=== PATIENT | female | born 1990 | race Caucasian/White ===

== ENCOUNTER 2022-06-20 19:56 | Emergency (ER) | payer OTHER ==
[2022-06-20 23:37] LABS: Absolute Lymphocytes (CBC) 1.5 K/uL (0.7-4.9); MPV 7.7 fL (7.6-11.3)
[2022-06-20] MEDS ORDERED: ONDANSETRON 4 MG/2 ML VIAL ONE (23:40)
[2022-06-20] MEDS ORDERED: MORPHINE 2 MG/ML SYR ONE (23:40)
[2022-06-20] MEDS ORDERED: NA CHLORIDE 0.9% 1,000 ML ONE (23:40)
[2022-06-20 23:46] LABS: Hematocrit 43.6 % (36.0-45.0); Lymphocytes % 19.7 % (15.3-44.8); MCV 90.8 fL (80-100); RBC Red Blood Cell Count 4.81 M/uL (3.86-4.86)
[2022-06-20 23:49] LABS: Albumin 4.5 g/dL (3.4-5.0); Bilirubin Total 0.7 mg/dL (0.2-1.0); Magnesium 2.4 mg/dL (1.6-2.4); Potassium 4.2 mmol/L (3.5-5.1)
[2022-06-21 00:51] LABS: Urine Blood Negative (Negative); Urine Glucose Negative (Negative); Urine Protein Negative (Negative); Urine Specific Gravity >=1.030 (1.005-1.030)
[2022-06-21] MEDS ORDERED: PROMETHAZINE INJ 25 MG/ML AMP ONE (00:58)
[2022-06-21] MEDS ORDERED: HYDROCODONE/APAP 5/325 MG TAB ONE (00:59)
--- NOTE | 2022-06-21 01:18 | ER ---
Nurse's Notes [facility] Name: Lila Farmer Age: 32 yrs Sex: Female : 1990 Arrival Date: 06/20/2022 Time: 20:26 Bed 16 Private MD: Diagnosis: Disorder of teeth and supporting structures, unspecified;Nausea with vomiting, unspecified Presentation: 06/20 21:19 Chief complaint: Patient states: "I had my tooth cut out yesterday.". Coronavirus vc1 screen: Vaccine status: Patient reports receiving the 2nd dose of the covid vaccine. Embarkly. Ebola Screen: No symptoms or risks identified at this time. Risk Assessment: Do you want to hurt yourself or someone else? Patient reports no desire to harm self or others. Onset of symptoms was June 19, 2022. 21:19 Method Of Arrival: Ambulatory vc1 21:19 Acuity: HEAVEN 3 vc1 21:29 Initial Sepsis Screen: Does the patient meet any 2 criteria? No. Patient's initial vc1 sepsis screen is negative. Does the patient have a suspected source of infection? No. Patient's initial sepsis screen is negative. Triage Assessment: 21:29 General: Appears in no apparent distress. uncomfortable, ill, Behavior is calm, vc1 cooperative, appropriate for age. Pain: Complains of pain in had tooth extracted. EENT: Reports pain in Had tooth extracted. 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 - Social history:: Smoking status: Patient denies any tobacco usage or history of. Screenin:30 [facility] ED Fall Risk Assessment (Adult) History of falling in the last 3 months, pf1 including since admission No falls in past 3 months (0 pts). 23:30 Humpty Dumpty Scale Fall Assessment Tool (age< 18yrs) Age 13 years and above (1 pt) pf1 Gender Female (1 pt) Diagnosis Other diagnosis (1 pt) Cognitive Impairments Oriented to own ability (1 pt) Environmental Factors Patient placed in bed (2 pts) Response to Surgery/Sedation/Anesthesia Within 48 hours (2 pts) Medication Usage Other medications/ None (1 pt) Fall Risk Score/ Level Low Fall Risk: </= 11 points Oriented to surroundings, Maintained a safe environment: Age specific bed with railing, Bed in low position\\T\\ wheels locked, Assess need for siderail use, Locks on, Rm \\T\\ paths clutter \\T\\ obstacle free, Proper lighting, Call light, personal item w/in reach, Alarms as needed, Educated pt \\T\\ family on fall prevention, incl. call for assistance when getting out of bed, Assessed \\T\\ reinforced patient's understanding of fall precautions. Abuse screen: Denies threats or abuse. Nutritional screening: No deficits noted. Tuberculosis screening: No symptoms or risk factors identified. Fall Risk No fall in past 12 months (0 pts). IV access (20 points). Assessment: 23:30 General: Appears uncomfortable, well groomed, well developed, Behavior is calm, pf1 cooperative, appropriate for age, quiet. 23:30 Pain: Complains of pain in Patient C/O left bottom mouth pain of 5 with swelling, pf1 nausea and vomiting,onset yesterday. Patient stated had a tooth surgically extracted yesterday. Pain currently is 5 out of 10 on a pain scale. Alleviated by medications. Neuro: No deficits noted. Level of Consciousness is awake, alert, obeys commands, Oriented to person, place, time, situation. Cardiovascular: No deficits noted. Respiratory: No deficits noted. Airway is patent Breath sounds are clear bilaterally. GI: Abdomen is flat, Bowel sounds present X 4 quads. Abd is soft and non tender X 4 quads. Reports nausea, vomiting. : No deficits noted. No signs and/or symptoms were reported regarding the genitourinary system. EENT:. EENT:. EENT: Reports pain in left lower mouth pain of 5 with swelling. Derm:. Vital Signs: 21:19 Weight 68.04 kg; Height 5 ft. 11 in. (180.34 cm); Pain 7/10; vc1 21:29 BP 117 / 93; Pulse 64; Resp 14; Temp 97.9(O); Pulse Ox 100% ; vc1 23:30 BP 122 / 84; Pulse 59; Resp 18; Temp 97.8; Pulse Ox 100% ; Pain 5/10; pf1 12 00:30 BP 126 / 86; Pulse 58; Resp 18; Temp 98; Pulse Ox 100% on R/A; Pain 3/10; pf1 01:30 BP 122 / 78; Pulse 60; Resp 18; Temp 98; Pulse Ox 99% ; Pain 3/10; pf1 06/20 21:19 Body Mass Index 20.92 (68.04 kg, 180.34 cm) vc1 ED Course: 06/20 20:26 Patient arrived in ED. bp1 20:29 Jorge Gee PA is PHCP. cp 20:29 Brayden Thornton MD is Attending Physician. cp 21:23 Triage completed. vc1 21:25 Arm band placed on right wrist. vc1 23:29 Donna winkler RN is Primary Nurse. pf1 23:30 Patient has correct armband on for positive identification. Bed in low position. Call pf1 light in reach. 23:30 No provider procedures requiring assistance completed. pf1 23:30 Inserted saline lock: 20 gauge in left antecubital area, using aseptic technique. pf1 06/21 00:52 Urine --Ancillary (enter results) Sent. pf1 01:45 IV discontinued, intact, bleeding controlled, No redness/swelling at site. Pressure pf1 dressing applied. Administered Medications: 06/20 23:50 Drug: NS 0.9% 1000 ml Route: IV; Rate: 1 bolus; Site: left antecubital; pf1 06/21 00:50 Follow up: Response: No adverse reaction; IV Status: Completed infusion; IV Intake: pf1 1000ml 06/20 23:50 Drug: Zofran (Ondansetron) 4 mg Route: IVP; Site: left antecubital; pf1 06/21 00:50 Follow up: Response: No adverse reaction; Nausea is decreased; Vomiting decreased pf1 06/20 23:50 Drug: morphine 2 mg Route: IVP; Infused Over: 4 mins; Site: left antecubital; pf1 06/21 00:50 Follow up: Response: No adverse reaction; Pain is decreased; RASS: Alert and Calm (0) pf1 01:00 Drug: Phenergan (promethazine) 12.5 mg Route: IVP; Site: left antecubital; pf1 01:44 Follow up: Response: No adverse reaction; Nausea is decreased pf1 01:12 Drug: HYDROcodone-acetaminophen 5 mg-325 mg 1 tabs Route: PO; pf1 01:42 Follow up: Response: No adverse reaction; Pain is decreased; RASS: Alert and Calm (0) pf1 Medication: 01:49 VIS not applicable for this client. pf1 Intake: 00:50 IV: 1000ml; Total: 1000ml. pf1 Outcome: 01:17 Discharge ordered by MD. cp 01:46 Discharged to home ambulatory, with family. pf1 01:46 Condition: improved 01:46 Discharge instructions given to patient, Instructed on discharge instructions, follow up and referral plans. medication usage, Demonstrated understanding of instructions, follow-up care, medications, Prescriptions given X 2. 01:50 Patient left the ED. pf1 Signatures: Jorge Gee PA PA cp [place]ia[place], Brittany bp1 Calcote, Vanessa, RN RN vc1 Donna winkler, VERA RN pf1 Corrections: (The following items were deleted from the chart) 06/20 21:25 21:23 Allergies: No Known Allergies; vc1 vc1 21:25 21:23 Home Meds: Sumatriptan Sub-Q; vc1 vc1 06/21 01:20 06/20 23:30 Inserted saline lock: 20 gauge in left antecubital area, using aseptic pf1 technique. pf1
--- NOTE | 2022-06-21 01:18 | EDPHYS ---
Physician Documentation [facility] Name: Lila Farmer Age: 32 yrs Sex: Female : 1990 Arrival Date: 06/20/2022 Time: 20:26 Bed 16 Private MD: ED Physician Brayden Thornton HPI: 06/20 21:30 This 32 yrs old Female presents to ER via Ambulatory with complaints of Toothache, cp Vomiting. 21:30 The patient presents with pain. The problem is located in the left lower jaw. Onset: cp The symptoms/episode began/occurred yesterday, and became worse today. Associated signs and symptoms: Pertinent positives: nausea, vomiting. Patient reports having left lower molar removed yesterday w/o complication. Today has been vomiting and unable to keep fluids and/or food down. 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 - Social history:: Smoking status: Patient denies any tobacco usage or history of. ROS: 21:35 Constitutional: Positive for poor PO intake, Negative for body aches, chills, fever. cp 21:35 Eyes: Negative for injury, pain, redness, and discharge. cp 21:35 ENT: Positive for dental pain, Negative for drainage from ear(s), ear pain, sore throat, difficulty swallowing, difficulty handling secretions. 21:35 Cardiovascular: Negative for chest pain. 21:35 Respiratory: Negative for cough, shortness of breath, wheezing. 21:35 Abdomen/GI: Positive for nausea and vomiting, Negative for diarrhea, constipation. 21:35 Neuro: Negative for altered mental status, headache. 21:35 All other systems are negative. Exam: 21:40 Constitutional: The patient appears in no acute distress, alert, awake, non-toxic, well cp developed, well nourished, uncomfortable. 21:40 Head/face: Noted is swelling, that is mild, of the left jaw. cp 21:40 Eyes: Periorbital structures: appear normal, Conjunctiva: normal, no exudate, no injection, Sclera: no appreciated abnormality, Lids and lashes: appear normal, bilaterally. 21:40 ENT: External ear(s): are unremarkable, Ear canal(s): are normal, clear, TM's: dullness, bilaterally, Nose: is normal, Mouth: Lips: moist, Oral mucosa: pink and intact, moist, Posterior pharynx: Airway: no evidence of obstruction, patent, swelling, is not appreciated, erythema, is not appreciated, exudate, is not appreciated, Dental exam: missing teeth, specifically the lower left second molar (#18), pain, that is severe, specifically in the lower left second molar (#18), Voice: is normal. 21:40 Neck: ROM/movement: is normal, is supple, without pain, no range of motions limitations, no meningismus, Lymph nodes: no appreciated lymphadenopathy. 21:40 Chest/axilla: Inspection: normal. 21:40 Cardiovascular: Rate: normal, Rhythm: regular. 21:40 Respiratory: the patient does not display signs of respiratory distress, Respirations: normal, no use of accessory muscles, no retractions, labored breathing, is not present, Breath sounds: are clear throughout, no decreased breath sounds, no stridor, no wheezing. 21:40 Abdomen/GI: Inspection: abdomen appears normal, Palpation: abdomen is soft and non-tender, in all quadrants. 21:40 Neuro: Orientation: to person, place \T\ time. Mentation: is normal, Cerebellar function: is grossly normal, Motor: moves all fours, strength is normal, Sensation: is normal. Vital Signs: 21:19 Weight 68.04 kg; Height 5 ft. 11 in. (180.34 cm); Pain 7/10; vc1 21:29 BP 117 / 93; Pulse 64; Resp 14; Temp 97.9(O); Pulse Ox 100% ; vc1 23:30 BP 122 / 84; Pulse 59; Resp 18; Temp 97.8; Pulse Ox 100% ; Pain 5/10; pf1 06/21 00:30 BP 126 / 86; Pulse 58; Resp 18; Temp 98; Pulse Ox 100% on R/A; Pain 3/10; pf1 01:30 BP 122 / 78; Pulse 60; Resp 18; Temp 98; Pulse Ox 99% ; Pain 3/10; pf1 06/20 21:19 Body Mass Index 20.92 (68.04 kg, 180.34 cm) vc1 MDM: 06/20 21:35 Patient medically screened. cp 22:00 Differential diagnosis: sepsis, dental abscess, intractable pain, dehydration, cp intractable vomiting. 06/21 01:16 Data reviewed: vital signs, nurses notes, lab test result(s), and as a result, I will cp discharge patient. Counseling: I had a detailed discussion with the patient and/or guardian regarding: the historical points, exam findings, and any diagnostic results supporting the discharge/admit diagnosis, lab results, to return to the emergency department if symptoms worsen or persist or if there are any questions or concerns that arise at home. 06/20 21:24 Order name: CBC with Diff; Complete Time: 00:14 cp 06/20 21:24 Order name: CMP; Complete Time: 00:14 cp 06/21 00:15 Interpretation: Normal except: NA 135; GFR 76; AST 12. cp 06/20 21:24 Order name: Magnesium; Complete Time: 00:14 cp 06/21 00:51 Order name: Urine Dipstick-Ancillary; Complete Time: 01:05 EDMS 06/21 01:05 Interpretation: Normal except: UKET 3+; UESTR 1+. cp 06/21 00:51 Order name: Urine --Ancillary (enter results) ds4 06/20 21:24 Order name: IV Saline Lock; Complete Time: 01:18 cp 06/20 21:24 Order name: Labs collected and sent; Complete Time: 01:18 cp 06/20 21:24 Order name: Urine Dipstick-Ancillary (obtain specimen); Complete Time: :18 cp 06/20 21:24 Order name: Urine Test (obtain specimen); Complete Time: 01:18 cp 06/21 00:26 Order name: PO challenge; Complete Time: 01:49 cp Administered Medications: 06/20 23:50 Drug: NS 0.9% 1000 ml Route: IV; Rate: 1 bolus; Site: left antecubital; pf1 06/21 00:50 Follow up: Response: No adverse reaction; IV Status: Completed infusion; IV Intake: pf1 1000ml 06/20 23:50 Drug: Zofran (Ondansetron) 4 mg Route: IVP; Site: left antecubital; pf1 06/21 00:50 Follow up: Response: No adverse reaction; Nausea is decreased; Vomiting decreased pf1 06/20 23:50 Drug: morphine 2 mg Route: IVP; Infused Over: 4 mins; Site: left antecubital; pf1 06/21 00:50 Follow up: Response: No adverse reaction; Pain is decreased; RASS: Alert and Calm (0) pf1 01:00 Drug: Phenergan (promethazine) 12.5 mg Route: IVP; Site: left antecubital; pf1 01:44 Follow up: Response: No adverse reaction; Nausea is decreased pf1 01:12 Drug: HYDROcodone-acetaminophen 5 mg-325 mg 1 tabs Route: PO; pf1 01:42 Follow up: Response: No adverse reaction; Pain is decreased; RASS: Alert and Calm (0) pf1 Disposition: 02:40 Co-signature as Attending Physician, Brayden Thornton MD. rn Disposition Summary: 06/21/22 01:17 Discharge Ordered Location: Home cp Problem: new cp Symptoms: have improved cp Condition: Stable cp Diagnosis - Disorder of teeth and supporting structures, unspecified cp - Nausea with vomiting, unspecified cp Followup: cp - With: Private Physician - When: 1 - 2 days - Reason: Worsening of condition Discharge Instructions: - Discharge Summary Sheet cp - Dental Pain cp - Nausea and Vomiting, Adult cp Forms: - Medication Reconciliation Form cp - Thank You Letter cp - Antibiotic Education cp - Prescription Opioid Use cp Prescriptions: - cefdinir 300 mg Oral capsule - take 1 capsule by ORAL route every 12 hours for 10 days; 20 capsule; Refills: cp 0, Product Selection Permitted - promethazine 25 mg Oral Tablet - take 1 tablet by ORAL route every 6 hours As needed; 20 tablet; Refills: 0, cp Product Selection Permitted Signatures: Dispatcher [employer] EDBrayden Verma MD MD rn Page, Corey, PA PA cp Velma Bhat RN RN vc1 Donna winkler RN RN pf1 Corrections: (The following items were deleted from the chart) 06/20 21:23 Allergies: No Known Allergies; vc1 vc1 21:23 Home Meds: Sumatriptan Sub-Q; vc1 vc1 06/21 00:15 00:15 Normal except: NA 135; GFR 76. cp cp
[2022-06-21 01:33] LABS: Urine Specific Gravity/Preg >1.030 (1.005-1.030)
[2022-06-21 02:12] VITALS: TEMP 98
[2022-06-21 02:14] VITALS: BP 122/78; O2SAT 99
== END 2022-06-21 01:50 | disposition home or self-care (01) ==
LOC: ER 19:56
DX: K08.89 Other specified disorders of teeth and supporting structures (principal); R11.2 Nausea with vomiting, unspecified; Z98.818 Other dental procedure status; Z88.0 Allergy status to penicillin; Z88.1 Allergy status to other antibiotic agents; Z88.3 Allergy status to other anti-infective agents; Z88.5 Allergy status to narcotic agent; Z88.6 Allergy status to analgesic agent; Z88.8 Allergy status to other drugs, medicaments and biological substances; Z91.040 Latex allergy status; Z91.048 Other nonmedicinal substance allergy status
CPT/HCPCS: 96361; 85025; 36415; 83735; 81025; 81003; 80053; 96375; 96374; 99284; J2550; J2270; J7030; J2405

== ENCOUNTER 2022-07-17 07:34 | Day surgery (SDC) | payer OTHER ==
[2022-07-17 08:06] LABS: Absolute Lymphocytes (CBC) 1.3 K/uL (0.7-4.9); Hematocrit 41.1 % (36.0-45.0); Lymphocytes % 26.7 % (15.3-44.8); MCV 90.2 fL (80-100); MPV 7.5 fL (7.6-11.3); RBC Red Blood Cell Count 4.56 M/uL (3.86-4.86)
[2022-07-17] MEDS ORDERED: Ringers Lactate 1,000 ML IV ONE (08:16)
[2022-07-17] MEDS ORDERED: MIDAZOLAM HCL 2 MG/2 ML INJ ONE (08:25)
[2022-07-17] MEDS ORDERED: FENTANYL CITR 100 MCG/2 ML ONE (08:25)
[2022-07-17] MEDS ORDERED: propofoL 200 MG/20 ML VIAL IV ONE (08:25)
[2022-07-17] MEDS ORDERED: KETOROLAC 30 MG/ML INJ ONE (08:26)
[2022-07-17] MEDS ORDERED: dexAMETHasone 10 MG/ML VIAL ONE (08:26)
[2022-07-17] MEDS ORDERED: LIDOCAINE 2% MPF 5 ML VIAL ONE (08:28)
[2022-07-17] MEDS ORDERED: ONDANSETRON 4 MG/2 ML VIAL ONE ×2 (08:28→10:45)
[2022-07-17] MEDS ORDERED: SCOPOLAMINE HYDROBROMIDE PATCH TD ONE (08:41)
[2022-07-17] MEDS ORDERED: CIPROFLOXACIN 400mg IV 400 MG/200 ML BAG IV ONE (08:41)
[2022-07-17] MEDS: BUPIVACAINE 0.5% PF 10 ML VIAL ONE ×3 (08:43→09:28)
[2022-07-17 09:07] LABS: Urine Specific Gravity/Preg 1.025 (1.005-1.030)
[2022-07-17] MEDS ORDERED: Mastisol Adhesive Liq ONE (10:06)
--- NOTE | 2022-07-17 10:07 | P.BOP ---
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
[2022-07-17] MEDS ORDERED: MEPERIDINE HCL 25 MG/ML SYR ONE (10:33)
[2022-07-17] MEDS ORDERED: MORPHINE 4 MG/ML SYR ONE (10:41)
[2022-07-17] MEDS ORDERED: HYDROCODONE/APAP 7.5/325 MG TAB ONE (11:28)
[2022-07-17 11:53] VITALS: BP 112/85; TEMP 97.4; O2SAT 100
--- NOTE | 2022-07-17 21:52 | DS ---
Date of Discharge: 07/17/2022 Diagnosis: Left hip tender enlarging subcutaneous mass. Procedure: Excision and biopsy of left hip tender enlarging subcutaneous mass. Disposition: Home. Activity: As tolerated, no heavy lifting. Follow Up: In my office in 1 week. Call for appointment on [phone]. Discharge Instructions: Keep area dry for 48 hours, then may remove outer dressing and shower. LEWIS t o bulb suction, record output q.24 hours. COLLEEN/AYANA Voice ID: [id number] Report ID: [id number]
--- NOTE | 2022-07-17 21:52 | OP ---
Date of Procedure: 07/17/2022 Surgeon: Joseph Gusman MD Coremaker Helper: Shandra Holder. Preoperative Diagnosis: Left hip tender enlarging recurrent subcutaneous mass. Postoperative Diagnosis: Left hip tender enlarging recurrent subcutaneous mass. Procedure: Excision and biopsy of left hip tender and large subcutaneous mass, 7 x 6 cm Specimen: Mass. Anesthesia: General plus local. Drains: LEWIS #10. Indications: This is a case of a 32-year-old patient who comes to us with enlarging mass over the le ft hip region increasing in size, she said last year several times in size. Interestingly she had th is similar near the area excised, she said several months ago and she even had a drain in that region . It was done at another institution and in the last few months, it has doubled in size few times. It is starting to give her pain and discomfort. It is not fluid, it is a mass itself so she wants th at excised. She understands the benefits, alternatives, and risks, which include, but are not limite d to infection, bleeding, damage to adjacent structures, anesthesia complication, seromas, hematomas, NE, and even . She also understands this may not relieve her symptoms and she might need more than one surgical intervention. She understood and signed a consent. Procedure In Detail: The area of concern was marked by me and the patient in the holding room. The patient was brought to the operating room and placed in supine position. Anesthesia was given withou t complication. The patient was placed in lateral decubitus position with proper protection. Left h ip was prepped and draped in a sterile fashion. We have already delineated the area of concern. We have to make another incision since the previous one may not cover the area of concern. So incision was carried down to subcutaneous tissue. We noticed this multilobulated mass in that region. At one point, one of the margins include scar tissue from the previous surgery. We were able to, slowly wi th the help of blunt dissection delineate the area of concern. It does not go to the fascia of the m uscle, although goes deep to that area. The mass was completely excised in 1 unit. Area was irrigat ed. There was a chance of a seroma in that region. Hematoma was controlled and we obtained excellen t hemostasis. Still I left a LEWIS drain in that region exiting through another site and secured in meredith ce with 2-0 nylon and then the subcutaneous tissue was closed after hemostasis and irrigation and loc al anesthetic. We proceeded to close the subcutaneous tissue with a combination of 3-0 chromic and 4 -0 PDS. The patient tolerated the procedure well. The patient was sent to recovery in stable condit ion. Sponge count and instrument counts were correct. COLLEEN/MODL Voice ID: [id number] Report ID: [id number]
== END 2022-07-17 11:45 | disposition home or self-care (01) ==
LOC: OR 07:34
PROVIDERS: ATTEND Surgery
PROC: 0JBM0ZZ Excision of Left Upper Leg Subcutaneous Tissue and Fascia, Open Approach (ICD-10-PCS; principal; 2022-07-17 09:30)
DX: R22.42 Localized swelling, mass and lump, left lower limb (principal); J45.909 Unspecified asthma, uncomplicated; F41.9 Anxiety disorder, unspecified
CPT/HCPCS: 85025; 80048; 36415; 81025; 88304; 11406; J2704; J2001; J2250; J3010; J1100; J2175; J7120; J2405 ×2; J0744

== ENCOUNTER 2022-08-27 15:21 | Emergency (ER) | payer OTHER ==
--- NOTE | 2022-08-27 15:51 | EDPHYS ---
Physician Documentation [facility] Name: Lila Farmer Age: 32 yrs Sex: Female : 1990 Arrival Date: 08/27/2022 Time: 15:23 Bed [id number] Private MD: ED Physician Destin Prabhakar HPI: 08/27 17:15 This 32 yrs old Female presents to ER via Ambulatory with complaints of Ankle Swelling, kb Foot Swelling. 17:17 The patient presents with cellulitis of the dorsum of right foot and anterior aspect of kb right ankle. Description: erythematous, swollen, warm. Onset: The symptoms/episode began/occurred yesterday. Possible cause(s): insect sting. Associated signs and symptoms: Pertinent positives: erythema, swelling, Pertinent negatives: discharge, drainage, foreign body sensation, fever, headache, nausea, shortness of breath, vomiting. Modifying factors: the symptoms are alleviated by nothing, the symptoms are aggravated by pressure, touching. Severity of symptoms: At their worst the symptoms were mild. The patient has not experienced similar symptoms in the past. The patient has not recently seen a physician. Historical: - Allergies: 15:49 Adhesives; aa5 15:49 Clindamycin; aa5 15:49 Ibuprofen; aa5 15:49 Latex, Natural Rubber; aa5 15:49 PENICILLINS; aa5 15:49 SUMATRIPTAN; aa5 15:49 Tramadol HCl; aa5 - PMHx: 15:49 Asthma; aa5 - PSHx: 15:49 face reconstruction; hysterectomy; Tonsillectomy; aa5 - Immunization history:: Adult Immunizations unknown. - Social history:: Smoking status: Patient denies any tobacco usage or history of. ROS: 17:15 Constitutional: Negative for fever, chills, and weight loss. kb 17:15 Skin: Positive for erythema, swelling, of the anterior aspect of right ankle and dorsum of right foot. 17:15 All other systems are negative. Exam: 17:15 Constitutional: This is a well developed, well nourished patient who is awake, alert, kb and in no acute distress. Head/Face: Normocephalic, atraumatic. ENT: Moist Mucous membranes Cardiovascular: Regular rate and rhythm with a normal S1 and S2. No gallops, murmurs, or rubs. No pulse deficits. Respiratory: Respirations even and unlabored. No increased work of breathing. Talking in full sentences Abdomen/GI: Soft, non-tender. No distention MS/ Extremity: Pulses equal, no cyanosis. Neurovascular intact. Full, normal range of motion. Neuro: Awake and alert, GCS 15, oriented to person, place, time, and situation. Moves all extremities. Normal gait. 17:15 Skin: cellulitis, that is mild, on the dorsum of right foot and anterior aspect of right ankle. Vital Signs: 15:49 BP 120 / 93; Pulse 85; Resp 18 S; Temp 98.0(TE); Pulse Ox 100% on R/A; Weight 70.67 kg aa5 (R); Height 5 ft. 11 in. (180.34 cm) (R); 15:49 Body Mass Index 21.73 (70.67 kg, 180.34 cm) aa5 MDM: 15:47 Patient medically screened. kb 17:18 Differential diagnosis: abscess, allergic reaction, cellulitis, insect bite. Data kb reviewed: vital signs, nurses notes. Counseling: I had a detailed discussion with the patient and/or guardian regarding: the historical points, exam findings, and any diagnostic results supporting the discharge/admit diagnosis, the need for outpatient follow up, a family practitioner, to return to the emergency department if symptoms worsen or persist or if there are any questions or concerns that arise at home. ED course: Patient is a 32-year-old female who presents for redness, swelling, pain and warmth to anterior aspect of right ankle and dorsal aspect of right foot that started yesterday after being bitten by some insect. On exam mild cellulitis is noted to anterior aspect of right ankle and dorsal aspect of right foot. Vital stable, no fever. Patient nontoxic in appearance. Will prescribe antibiotics. Return precautions given and verbal understanding received.. Administered Medications: No medications were administered Disposition: 17:38 Co-signature as Attending Physician, Destin Prabhakar MD I agree with the assessment and kdr plan of care. Disposition Summary: 08/27/22 15:51 Discharge Ordered Location: [facility] Condition: Stable kb Diagnosis - Cellulitis of right lower limb kb Followup: kb - With: Emergency Department - When: As needed - Reason: Worsening of condition Followup: kb - With: Private Physician - When: 2 - 3 days - Reason: Recheck today's complaints, Continuance of care, Re-evaluation by your physician Discharge Instructions: - Discharge Summary Sheet kb - Cellulitis, Adult, Wyna-ax-Rcnd kb Forms: - Medication Reconciliation Form kb - Thank You Letter kb - Antibiotic Education kb - Prescription Opioid Use kb Prescriptions: - Bactrim DS 800-160 mg Oral Tablet - take 1 tablet by ORAL route every 12 hours for 10 days; 20 tablet; Refills: 0, kb Product Selection Permitted Signatures: Liliana Chaves FNP-C FNP-Ckb Rittger, Kevin, MD MD kdr Calderon, Audri, RN RN aa5
--- NOTE | 2022-08-27 15:51 | ER ---
Nurse's Notes [facility] Name: Lila Farmer Age: 32 yrs Sex: Female : 1990 Arrival Date: 08/27/2022 Time: 15:23 Bed IW4 Private MD: Diagnosis: Cellulitis of right lower limb Presentation: 08/27 15:49 Chief complaint: Patient states: "I think I got bitten by fire ants on my right foot". aa5 Pt c/o pain to right foot, swelling to right foot. Coronavirus screen: At this time, the client does not indicate any symptoms associated with coronavirus-19. Ebola Screen: Patient denies travel to an Ebola-affected area in the 21 days before illness onset. Initial Sepsis Screen: Does the patient meet any 2 criteria? No. Patient's initial sepsis screen is negative. Does the patient have a suspected source of infection? No. Patient's initial sepsis screen is negative. Risk Assessment: Do you want to hurt yourself or someone else? Patient reports no desire to harm self or others. Onset of symptoms was August 2022. 15:49 Acuity: HEAVEN 5 aa5 15:49 Method Of Arrival: Ambulatory aa5 Historical: - Allergies: 15:49 Adhesives; aa5 15:49 Clindamycin; aa5 15:49 Ibuprofen; aa5 15:49 Latex, Natural Rubber; aa5 15:49 PENICILLINS; aa5 15:49 SUMATRIPTAN; aa5 15:49 Tramadol HCl; aa5 - PMHx: 15:49 Asthma; aa5 - PSHx: 15:49 face reconstruction; hysterectomy; Tonsillectomy; aa5 - Immunization history:: Adult Immunizations unknown. - Social history:: Smoking status: Patient denies any tobacco usage or history of. Assessment: 15:53 Reassessment: Patient is alert, oriented x 3, equal unlabored respirations, skin aa5 warm/dry/pink. Vital Signs: 15:49 BP 120 / 93; Pulse 85; Resp 18 S; Temp 98.0(TE); Pulse Ox 100% on R/A; Weight 70.67 kg aa5 (R); Height 5 ft. 11 in. (180.34 cm) (R); 15:49 Body Mass Index 21.73 (70.67 kg, 180.34 cm) aa5 ED Course: 15:23 Patient arrived in ED. as 15:32 Liliana Chaves FNP-C is [facility]. kb 15:32 Destin Prabhakar MD is Attending Physician. kb 15:48 Arm band placed on. aa5 15:51 Triage completed. aa5 15:53 No provider procedures requiring assistance completed. Patient did not have IV access aa5 during this emergency room visit. Administered Medications: No medications were administered Outcome: 15:51 Discharge ordered by . kb 15:53 Discharged to home ambulatory. aa5 15:53 Condition: stable 15:53 Discharge instructions given to patient, Instructed on discharge instructions, follow up and referral plans. medication usage, Demonstrated understanding of instructions, follow-up care, medications, Prescriptions given X 1. 15:54 Patient left the ED. aa5 Signatures: Liliana Chaves FNP-C FNP-Regla Osorio Audri, RN RN aa5 Corrections: (The following items were deleted from the chart) 15:51 15:49 Pulse 85bpm; Resp 18bpm; Spontaneous; Pulse Ox 100% RA; Temp 98.0F Temporal; aa5 70.67 kg Reported; Height 5 ft. 11 in. Reported; BMI: 21.7; aa5
== END 2022-08-27 15:54 | disposition home or self-care (01) ==
LOC: ER 15:21
DX: L03.115 Cellulitis of right lower limb (principal)
CPT/HCPCS: 99282

== ENCOUNTER 2022-11-20 19:26 | Emergency (ER) | payer OTHER ==
[2022-11-20 20:29] LABS: Absolute Lymphocytes (CBC) 2.4 K/uL (0.7-4.9); Hematocrit 39.1 % (36.0-45.0); Lymphocytes % 25.2 % (15.3-44.8); MCV 89.3 fL (80-100); MPV 7.6 fL (7.6-11.3); RBC Red Blood Cell Count 4.38 M/uL (3.86-4.86)
--- NOTE | 2022-11-20 20:34 | RAD REPORT ---
EXAM DESCRIPTION: RAD - Chest Single View - 11/20/2022 8:24 pm CLINICAL HISTORY: Chest pain;Congestion;Cough Chest pain. COMPARISON: No comparisons FINDINGS: Portable technique limits examination quality. The lungs are grossly clear. The heart is normal in size. No displaced fractures. IMPRESSION: No acute intrathoracic process suspected.
[2022-11-20 20:36] LABS: Protime INR 1.09
[2022-11-20 20:37] LABS: ALT/SGPT 20 U/L (13-56); AST/SGOT 12 U/L (15-37); Albumin 4.2 g/dL (3.4-5.0); Alkaline Phosphatase 64 U/L (45-117); BUN Blood Urea Nitrogen 16 mg/dL (7-18); Bicarbonate 28 mEq/L (21-32); Bilirubin Direct 0.1 mg/dL (0-0.2); Bilirubin Indirect, Calculated 0.1 mg/dL (0.2-0.8); Bilirubin Total 0.2 mg/dL (0.2-1.0); Glomerular Filtration Rate 70 ml/min (=/>90); Glucose Level 93 mg/dL (74-106); Magnesium 2.1 mg/dL (1.6-2.4); NT PRO-BNP 53 pg/mL (<125); Potassium 3.5 mEq/L (3.5-5.1); Protein, Total 8.1 g/dL (6.4-8.2); Sodium Level 134 mEq/L (136-145)
[2022-11-20 20:49] LABS: Troponin High Sensitivity < 3.0 pg/mL (<58.9)
[2022-11-20] MEDS ORDERED: NA CHLORIDE 0.9% 1,000 ML ONE (21:01)
[2022-11-20] MEDS ORDERED: ONDANSETRON 4 MG/2 ML VIAL ONE (21:01)
[2022-11-20] MEDS ORDERED: MORPHINE 4 MG/ML SYR ONE (21:01)
[2022-11-20] MEDS ORDERED: LORazepam 2 MG/ML VIAL ONE (21:01)
[2022-11-20] MEDS ORDERED: MAGNES/ALUMIN/SIMET 30ML UCUP ONE (21:02)
--- NOTE | 2022-11-20 21:19 | RAD REPORT ---
EXAM DESCRIPTION: CT - Chest For Pe Angio - 11/20/2022 9:09 pm CLINICAL HISTORY: Chest pain. CHEST PAIN COMPARISON: <Comparisons> TECHNIQUE: CT angiogram of the pulmonary arteries was performed with MIP. All CT scans are performed using dose optimization technique as appropriate and may include automated exposure control or mA/KV adjustment according to patient size. FINDINGS: No evidence of pulmonary thromboembolism. No acute aortic finding demonstrated. The lungs are clear. No significant pericardial or pleural fluid. No concerning bony finding. IMPRESSION: No evidence of pulmonary thromboembolism. No acute lung findings.
--- NOTE | 2022-11-20 23:25 | ER ---
Nurse's Notes [facility] Name: Lila Farmer Age: 32 yrs Sex: Female : 1990 Arrival Date: 11/20/2022 Time: 19:26 Bed 5 Private MD: Diagnosis: Acute systemic viral illness, acute viral bronchitis, COVID-19, pleuritic chest pain, noncardiac chest pain Presentation: 11/20 19:50 Chief complaint: Patient states: "I've had this cough for a week and it won't go away, as6 my doctor gave me antibiotics and I've been taking them for about 5 days and it still hasn't gone away". Coronavirus screen: At this time, the client does not indicate any symptoms associated with coronavirus-19. Ebola Screen: No symptoms or risks identified at this time. Initial Sepsis Screen: Does the patient meet any 2 criteria? No. Patient's initial sepsis screen is negative. Does the patient have a suspected source of infection? No. Patient's initial sepsis screen is negative. Risk Assessment: Do you want to hurt yourself or someone else? Patient reports no desire to harm self or others. Onset of symptoms was November 13, 2022. 19:50 Method Of Arrival: Ambulatory as6 19:50 Acuity: HEAVEN 3 as6 Triage Assessment: 19:56 General: Appears uncomfortable, ill, Behavior is cooperative, anxious, crying. Pain: as6 Complains of pain in chest. Cardiovascular: Reports chest pain. Respiratory: Reports cough that is. 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 - Social history:: Smoking status: Patient denies any tobacco usage or history of. - Family history:: not pertinent. Screenin:30 [facility] ED Fall Risk Assessment (Adult) History of falling in the last 3 months, ll3 including since admission No falls in past 3 months (0 pts) Confusion or Disorientation No (0 pts) Intoxicated or Sedated No (0 pts) Impaired Gait No (0 pts) Mobility Assist Device Used No (0 pt) Altered Elimination No (0 pt) Score/Fall Risk Level 0 - 2 = Low Risk Oriented to surroundings, Maintained a safe environment, Educated pt \\T\\ family on fall prevention, incl call for assistance when getting out of bed. Abuse screen: Denies threats or abuse. Denies injuries from another. Nutritional screening: No deficits noted. Tuberculosis screening: No symptoms or risk factors identified. Assessment: 21:00 General: Appears in no apparent distress. uncomfortable, Behavior is calm, cooperative, jb4 appropriate for age. Pain: Complains of pain in mid-sternal area Pain does not radiate. Pain currently is 8 out of 10 on a pain scale. Quality of pain is described as burning. Neuro: Level of Consciousness is awake, alert, obeys commands, Oriented to person, place, time, situation. Cardiovascular: Patient's skin is warm and dry. Respiratory: Airway is patent Respiratory effort is even, unlabored, Respiratory pattern is regular, symmetrical. GI: No signs and/or symptoms were reported involving the gastrointestinal system. : No signs and/or symptoms were reported regarding the genitourinary system. EENT: No signs and/or symptoms were reported regarding the EENT system. Derm: Skin is intact, Skin is pink, warm \\T\\ dry. Musculoskeletal: Circulation, motion, and sensation intact. Range of motion: intact in all extremities. 22:00 Reassessment: Patient appears in no apparent distress at this time. Patient and/or jb4 family updated on plan of care and expected duration. Pain level reassessed. Patient is alert, oriented x 3, equal unlabored respirations, skin warm/dry/pink. 23:00 Reassessment: Patient appears in no apparent distress at this time. Patient and/or jb4 family updated on plan of care and expected duration. Pain level reassessed. Patient is alert, oriented x 3, equal unlabored respirations, skin warm/dry/pink. Patient states feeling better. Vital Signs: 19:50 BP 135 / 96; Pulse 85; Resp 20; Temp 98.2; Pulse Ox 99% on R/A; Weight 68.04 kg (R); as6 Height 5 ft. 10 in. (R); Pain 7/10; 20:45 BP 138 / 89; Pulse 83; Resp 16; Pulse Ox 98% on R/A; jb4 22:15 BP 139 / 81; Pulse 74; Resp 16; Pulse Ox 98% on R/A; jb4 23:30 BP 127 / 80; Pulse 85; Resp 16; Pulse Ox 100% on R/A; ll3 19:50 Body Mass Index 21.52 (68.04 kg, 177.8 cm) as6 19:50 Pain Scale: Adult as6 ED Course: 19:29 Patient arrived in ED. ja2 19:55 Triage completed. as6 19:56 Arm band placed on. as6 19:58 Danny Gimenez MD is Attending Physician. sp4 20:05 Inserted saline lock: 20 gauge in left antecubital area, using aseptic technique. Blood as6 collected. 20:26 XRAY Chest (1 view) In Process Unspecified. EDMS 21:10 CT Chest For PE Angio In Process Unspecified. EDMS 21:41 Anibal Chinchilla, RN is Primary Nurse. jb4 21:57 EKG done, reviewed by Danny Gimenez MD. wm 23:30 Patient has correct armband on for positive identification. Bed in low position. Call ll3 light in reach. Side rails up X 1. Client placed on continuous cardiac and pulse oximetry monitoring. NIBP monitoring applied. 23:31 No provider procedures requiring assistance completed. Patient maintains SpO2 ll3 saturation greater than 95% on room air. 23:48 IV discontinued, intact, bleeding controlled, No redness/swelling at site. Pressure ll3 dressing applied. Administered Medications: 21:04 Drug: Ativan IVP 1 mg Route: IVP; Site: left antecubital; jb4 23:29 Follow up: Response: No adverse reaction ll3 21:04 Drug: morphine IVP or IV 4 mg Route: IVP; Infused Over: 4 mins; Site: left antecubital; jb4 23:29 Follow up: Response: No adverse reaction ll3 21:04 Drug: Ondansetron IVP 4 mg Route: IVP; Site: left antecubital; jb4 23:29 Follow up: Response: No adverse reaction ll3 21:39 Drug: NS 0.9% IV 1000 ml Route: IV; Rate: 1 bolus; Site: left antecubital; jb4 23:29 Follow up: Response: No adverse reaction; IV Status: Completed infusion; IV Intake: ll3 1000ml 21:39 Drug: Alum-Mag Hydroxide-Simeth PO Suspension (200 mg-200 mg-20 mg/5 mL) 30 ml Route: jb4 PO; 23:30 Follow up: Response: No adverse reaction ll3 23:22 CANCELLED (Duplicate Order): AZITHromycin PO 500 mg PO once sp4 23:29 Drug: Tessalon Perle PO 200 mg Route: PO; ll3 23:49 Follow up: Response: Medication administered at discharge. ll3 23:29 Drug: Acetaminophen-Codeine PO (300 mg-30 mg) 2 tabs Route: PO; ll3 23:49 Follow up: Response: Medication administered at discharge. ll3 Medication: 23:31 VIS not applicable for this client. ll3 Intake: 23:29 IV: 1000ml; Total: 1000ml. ll3 Outcome: 23:25 Discharge ordered by . sp4 23:48 Discharged to home ambulatory, with significant other. ll3 23:48 Condition: stable 23:48 Discharge instructions given to patient, Instructed on discharge instructions, follow up and referral plans. medication usage, Demonstrated understanding of instructions, follow-up care, medications, Prescriptions given X 6 23:49 Patient left the ED. ll3 Signatures: Dispatcher [employer] EDAnibal Shipley RN RN jb4 Aleida Mueller Jessica ja2 Slawson, Ashby, RN RN as6 Haleigh Rodriguez RN RN ll3 Danny Gimenez MD MD sp4 Corrections: (The following items were deleted from the chart) 23:48 23:48 Discharge instructions given to patient, Instructed on discharge instructions, ll3 follow up and referral plans. medication usage, Demonstrated understanding of instructions, follow-up care, medications, Prescriptions given X ll3
--- NOTE | 2022-11-20 23:26 | EDPHYS ---
Physician Documentation [facility] Name: Lila Farmer Age: 32 yrs Sex: Female : 1990 Arrival Date: 11/20/2022 Time: 19:26 Bed 5 Private MD: ED Physician Danny Gimenez HPI: 11/20 19:58 This 32 yrs old Female presents to ER via Ambulatory with complaints of sp4 Cough, Chest Tightness. 20:04 Patient is a 32-year-old female with history of hysterectomy for moderate to severe sp4 endometriosis presents with 1 week of cough, chest pain, chest discomfort, nonproductive cough. Patient was prescribed Bactrim p.o. 5 days ago for respiratory infection and this has not helped. Patient acutely uncomfortable on presentation and appears anxious. . 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 - Social history:: Smoking status: Patient denies any tobacco usage or history of. - Family history:: not pertinent. ROS: 20:04 Constitutional: Negative for fever, chills, and weight loss, Eyes: Negative for injury, sp4 pain, redness, and discharge, ENT: Negative for injury, pain, and discharge, positive sore throat Neck: Negative for injury, pain, and swelling, Cardiovascular: Negative for palpitations, and edema, positive for pleuritic chest pain Respiratory: Negative for shortness of breath, positive for cough, nonproductive cough, pleuritic chest pain, midsternal chest pain Abdomen/GI: Negative for abdominal pain, nausea, vomiting, diarrhea, and constipation, Back: Negative for injury and pain, : Negative for injury, bleeding, discharge, and swelling, MS/Extremity: Negative for injury and deformity, Skin: Negative for injury, rash, and discoloration, Neuro: Negative for headache, weakness, numbness, tingling, and seizure, Psych: Negative for depression, anxiety, Allergy/Immunology: Negative for hives, rash, and allergies Endocrine: Negative for neck swelling, polydipsia, polyuria, polyphagia, and weight changes Hematologic/Lymphatic: Negative for swollen nodes, abnormal bleeding, and unusual bruising Exam: 20:04 Constitutional: This is a well developed, well nourished patient who is awake, alert, sp4 acutely uncomfortable appearing, anxious appearing, restless Head/Face: Normocephalic, atraumatic. Eyes: Pupils equal round and reactive to light, extra-ocular motions intact. Lids and lashes normal. Conjunctiva and sclera are not injected. Cornea within normal limits. Periorbital areas with no swelling, redness, or edema. ENT: Nares patent. No nasal discharge, no septal abnormalities noted. Tympanic membranes are normal and external auditory canals are clear. Oropharynx with no redness, swelling, or masses, exudates, or evidence of obstruction, uvula midline. Mucous membranes moist. Neck: Trachea midline, no thyromegaly or masses palpated, and no cervical lymphadenopathy. Supple, full range of motion without nuchal rigidity, or vertebral point tenderness. No Meningismus. Chest/axilla: Normal chest wall appearance and motion. Nontender with no deformity. No lesions are appreciated. Cardiovascular: Regular rate and rhythm with a normal S1 and S2. No gallops, murmurs, or rubs. Normal PMI, no JVD. No pulse deficits. Respiratory: Lungs have equal breath sounds bilaterally, clear to auscultation and percussion. No rales, rhonchi or wheezes noted. No increased work of breathing, no retractions or nasal flaring. Abdomen/GI: Soft, non-tender, with normal bowel sounds. No distension or tympany. No guarding or rebound. No evidence of tenderness throughout. Back: No spinal tenderness. No costovertebral tenderness. Skin: Warm, dry with normal turgor. Normal color with no rashes, no lesions, and no evidence of cellulitis. MS/ Extremity: Pulses equal, no cyanosis. Neurovascular intact. Full, normal range of motion. Neuro: Awake and alert, GCS 15, oriented to person, place, time, and situation. Cranial nerves II-XII grossly intact. Motor strength 5/5 in all extremities. Sensory grossly intact. Psych: Awake, alert, with orientation to person, place and time. Behavior, mood, and affect are within normal limits 23:14 ECG was reviewed by the Attending Physician. Normal sinus rhythm at the rate of 76, EKG sp4 time 2150, there is low voltage QRS, nonspecific ST-T wave abnormality with inverted T waves V3 otherwise normal EKG Vital Signs: 19:50 BP 135 / 96; Pulse 85; Resp 20; Temp 98.2; Pulse Ox 99% on R/A; Weight 68.04 kg (R); as6 Height 5 ft. 10 in. (R); Pain 7/10; 20:45 BP 138 / 89; Pulse 83; Resp 16; Pulse Ox 98% on R/A; jb4 22:15 BP 139 / 81; Pulse 74; Resp 16; Pulse Ox 98% on R/A; jb4 23:30 BP 127 / 80; Pulse 85; Resp 16; Pulse Ox 100% on R/A; ll3 19:50 Body Mass Index 21.52 (68.04 kg, 177.8 cm) as6 19:50 Pain Scale: Adult as6 MDM: 19:59 Patient medically screened. sp4 23:22 Differential Diagnosis: Bronchitis Influenza Sinusitis Pharyngitis Viral Syndrome sp4 Pneumonia. Data reviewed: vital signs, nurses notes, old medical records, lab test result(s), cardiac enzymes, CBC, electrolytes, Flu: negative hepatic panel, EKG. Consideration of Admission/Observation Escalation of care including admission/observation considered. ED course: CT chest is unremarkable, chest x-ray is unremarkable. Patient tested positive for COVID-19. Patient clearly has acute viral syndrome and acute viral bronchitis. Will prescribe Paxlovid and other symptomatic medications to take at home. Advised 5-day quarantine at home and 5-day work release note. . 11/20 19:57 Order name: Basic Metabolic Panel; Complete Time: 21:07 11/20 19:57 Order name: CBC with Diff; Complete Time: 21:07 11/20 19:57 Order name: LFT's; Complete Time: 21:07 11/20 19:57 Order name: Magnesium; Complete Time: 21:07 11/20 19:57 Order name: NT PRO-BNP; Complete Time: 21:07 11/20 19:57 Order name: PT-INR; Complete Time: 21:07 11/20 19:57 Order name: Troponin HS; Complete Time: 21:07 11/20 21:48 Order name: COVID-19 SARS RT PCR; Complete Time: 23:16 11/20 21:48 Order name: Influenza Screen (a \T\ B); Complete Time: 23:07 11/20 19:57 Order name: XRAY Chest (1 view); Complete Time: 21:07 11/20 20:09 Order name: CT Chest For PE Angio; Complete Time: 21:27 11/20 19:57 Order name: EKG; Complete Time: 19:57 11/20 19:57 Order name: Cardiac monitoring; Complete Time: 21:04 11/20 19:57 Order name: EKG - Nurse/Tech; Complete Time: 21:41 11/20 19:57 Order name: IV Saline Lock; Complete Time: 20:05 11/20 19:57 Order name: Labs collected and sent; Complete Time: 20:05 11/20 19:57 Order name: O2 Per Protocol; Complete Time: 20:46 11/20 19:57 Order name: O2 Sat Monitoring; Complete Time: 20:46 EC:14 Rate is 76 beats/min. Rhythm is regular, Normal Sinus Rhythm. QRS [place] is Normal. [place] sp4 interval is normal. QRS interval is normal. T waves are Inverted in lead V3. No ST changes noted. Clinical impression: No evidence of ischemia. Interpreted by me. Administered Medications: 21:04 Drug: Ativan IVP 1 mg Route: IVP; Site: left antecubital; jb4 23:29 Follow up: Response: No adverse reaction ll3 21:04 Drug: morphine IVP or IV 4 mg Route: IVP; Infused Over: 4 mins; Site: left antecubital; jb4 23:29 Follow up: Response: No adverse reaction ll3 21:04 Drug: Ondansetron IVP 4 mg Route: IVP; Site: left antecubital; jb4 23:29 Follow up: Response: No adverse reaction ll3 21:39 Drug: NS 0.9% IV 1000 ml Route: IV; Rate: 1 bolus; Site: left antecubital; jb4 23:29 Follow up: Response: No adverse reaction; IV Status: Completed infusion; IV Intake: ll3 1000ml 21:39 Drug: Alum-Mag Hydroxide-Simeth PO Suspension (200 mg-200 mg-20 mg/5 mL) 30 ml Route: jb4 PO; 23:30 Follow up: Response: No adverse reaction ll3 23:22 CANCELLED (Duplicate Order): AZITHromycin PO 500 mg PO once sp4 23:29 Drug: Tessalon Perle PO 200 mg Route: PO; ll3 23:49 Follow up: Response: Medication administered at discharge. ll3 23:29 Drug: Acetaminophen-Codeine PO (300 mg-30 mg) 2 tabs Route: PO; ll3 23:49 Follow up: Response: Medication administered at discharge. ll3 Disposition Summary: 11/20/22 23:25 Discharge Ordered Location: Home sp4 Problem: new sp4 Symptoms: have improved sp4 Condition: Stable sp4 Diagnosis - Acute systemic viral illness, acute viral bronchitis, COVID-19, pleuritic chest sp4 pain, noncardiac chest pain Followup: sp4 - With: Private Physician - When: 7 - 10 days - Reason: Recheck today's complaints Discharge Instructions: - Discharge Summary Sheet sp4 - COVID-19 sp4 Forms: - Work release form pf1 - Prescription Opioid Use sp4 Prescriptions: - 1 - 0 Spacer for Albuterol inhaler = dispense one unit to be used every 4 hours sp4 with Inhaler; ; Refills: 0, Product Selection Permitted - Acetaminophen with codeine 120-30 mg - administer 1 tablet by ORAL route every 6 hours PRN cough; 20 tablet; Refills: sp4 0, Product Selection Permitted - Paxlovid (EUA) 300 mg (150 mg x 2)-100 mg Oral Tablet, Dose Pack - take 1 dose pack by ORAL route as directed on dose pack take TWO 150 mg tablets sp4 of nirmatrelvir with ONE 100 mg tablet of ritonavir twice daily for 5 days; 1 Pack; Refills: 0, Product Selection Permitted - Ventolin HFA 90 mcg/actuation Inhalation HFA Aerosol Inhaler - inhale 2 puff by INHALATION route every 4 hours as needed for shortness of sp4 breath or wheezing, use with Spacer; 1 unit; Refills: 0, Product Selection Permitted - Tessalon Perles 100 mg Oral Capsule - take 1 capsule by ORAL route every 6 hours As needed PRN cough; 60 capsule; sp4 Refills: 0, Product Selection Permitted - promethazine 25 mg Oral Tablet - take 1 tablet by ORAL route every 6 hours As needed; 30 tablet; Refills: 0, sp4 Product Selection Permitted Signatures: Dispatcher [employer] EDAnibal Shipley RN RN jb4 Inocencio Cyr RN RN as6 Haleigh Rodriguez RN RN ll3 Danny Gimenez MD MD sp4 Corrections: (The following items were deleted from the chart) 23:22 23:13 AZITHromycin PO 500 mg PO once ordered. sp4 sp4
[2022-11-20] MEDS ORDERED: BENZONATATE 100 MG CAP PO ONE (23:31)
[2022-11-20] MEDS ORDERED: CODEINE 30MG/APAP 300MG TAB ONE (23:32)
[2022-11-21 00:37] VITALS: TEMP 98.2
[2022-11-21 00:48] VITALS: BP 127/80; O2SAT 100
--- NOTE | 2022-11-21 07:46 | EKG ---
Test Date: 2022-11-20 Test Time: 21:50:27 Rag Grader: MEASUREMENT RESULTS: Intervals: Rate: 76 MA: 146 QRSD: 72 QT: 400 QTc: 450 [place]: P: 72 MA: 146 QRS: 40 T: 44 INTERPRETIVE STATEMENTS: Normal sinus rhythm Low voltage QRS Nonspecific ST and T wave abnormality Abnormal ECG No previous ECG available for comparison Electronically Signed On 11-21-22 07:45:27 CDT by Camden Garcia
--- NOTE | 2022-11-21 13:48 | EKG ---
Test Date: 2022-11-20 Test Time: 21:47:44 Envelope Machine Adjuster: MEASUREMENT RESULTS: Intervals: Rate: 72 DE: 140 QRSD: 78 QT: 390 QTc: 427 [place]: P: 66 DE: 140 QRS: 47 T: 17 INTERPRETIVE STATEMENTS: Normal sinus rhythm Nonspecific T wave abnormality Abnormal ECG No previous ECG available for comparison Electronically Signed On 11-21-22 13:48:10 CDT by Lanre Mills
== END 2022-11-20 23:49 | disposition home or self-care (01) ==
LOC: ER 19:26
DX: U07.1 COVID-19 (principal); J20.8 Acute bronchitis due to other specified organisms; B34.9 Viral infection, unspecified; R07.89 Other chest pain; Z88.0 Allergy status to penicillin; Z88.6 Allergy status to analgesic agent; Z88.3 Allergy status to other anti-infective agents
CPT/HCPCS: 96361; 93005 ×2; 85025; 80048; 36415; 83735; 85610; 80076; 84484; 83880; 87804 ×2; 71275; 71045; 96375; 96374; 99285; U0003; Q9967; J2405; J7030

== ENCOUNTER 2023-06-09 18:48 | Emergency (ER) | payer OTHER ==
--- OUTSIDE RECORDS SUMMARY | 2023-06-09 18:51 | XMS REPORT | Continuity of Care Document ---
:[address] [facility] t Address [address] [place] [id number] Care Team Providers Name Role Phone CHRETIEN_F Attending Clinician Unavailable [email or web address] Attending Clinician Unavailable CHRETIEN_F Admitting Clinician Unavailable [email or web address]_S Admitting Clinician Unavailable Payers Payer Name Policy Type Policy Number Effective Date Expiration Date Steven gray THOMAS AVILAMAN BENEFIT [id number] 2023 ADMINISTRATORS 00:00:00 THOMAS AMARAL - [employer] [id number] 2022 (PPO) 00:00:00 Problems Condition Condition Condition Status Onset Resolution Last Treating Co mments Source Name Details Category Date Date Treatment Clinician Date Acute Acute Problem Active 2022-07 [place] right Right 07-30 Communi otitis Otitis 00:00: ty media Media 00 [facility] Otitis Otitis Problem Active 2022-07 [place] externa of Externa of 07-30 Co mmuni right ear Right Ear 00:00: ty 00 [facility] Anxiety Anxiety Problem Active 2022-07 [place] 0-11 Communi 00:00: ty 00 [facility] Sleep Sleep Problem Active 2022-07 [place] terror Terror 0-11 Communi disorder Disorder 00:00: ty 00 [facility] Insomnia Insomnia Problem Active 2022-07 [place] y 0-11 Communi 00:00: ty 00 [facility] Migraine Migraine Problem Active 2022-07 [place] 0-11 Communi 00:00: ty 00 [facility] Endometrio Endometrio Problem Active 2022-07 S weeny sis sis 0-11 Communi (clinical) (Clinical) 00:00: ty 00 [facility] Fatigue Fatigue Problem Active 2022-07 [place] 0[facility] Allergies, Adverse Reactions, Alerts Allergy Allergy Status Severity Reaction(s) Onset Inactive Treating Comm ents Source Name Type Date Date Clinician Tramadol Allergy Active [place] to [facility] Clindamy Allergy Active Severe Other [place] landy to [facility] Ibuprofe Allergy Active Moderate Diarrhea Swe jaylen n to [facility] e [facility] Latex Allergy Active Moderate Other [place] to [facility] PENICILL Allergy Active Moderate Rash Sween y INS to [facility] e [facility] Sumatrip Allergy Active Severe Other [place] bennett to [facility] Social History Smoking Status Start Date Stop Date Source Never Smoker [facility] Medications Ordered Filled Start Stop Current Ordering Indication Dosage Frequency Signature Comments Components Source Medication Medication Date Date Medication? Clinician (SIG) Name Name trazodone trazodone No trazodone [place] 50 mg 50 mg 50 mg Communi tablet 1-2 tablet 1-2 tablet 1-2 ty tablets tablets tablets Hospit a every night every night every l as needed as needed night as C linics needed guanfacine guanfacine No 1 Q1D guanfacine [place] ER 1 mg ER 1 mg ER 1 mg Commun i tablet,exte tablet,exte tablet,ext ty nded nded ended Hospita release 24 release 24 release 24 l hr Take 1 hr Take 1 hr Take 1 Clinics tablet tablet tablet every day every day every day by oral by oral by oral route at route at route at bedtime for bedtime for bedtime 30 days. 30 days. for 30 days. levothyroxi levothyroxi No levothyrox [place] ne 25 mcg ne 25 mcg ine 25 mcg Communi tablet TAKE tablet TAKE tablet ty 1 TABLET BY 1 TABLET BY TAKE 1 Hospita MOUTH EVERY MOUTH EVERY TABLET BY l DAY DAY MOUTH Clinics DIRECTED DIRECTED EVERY DAY DIRECTED guanfacine guanfacine No guanfacine [place] ER 1 mg ER 1 mg ER 1 mg Commun i tablet,exte tablet,exte tablet,ext ty nded nded ended Hospita release 24 release 24 release 24 l hr Take 1 hr Take 1 hr Take 1 Clinics tablet tablet tablet every day every day every day by oral by oral by oral route at route at route at bedtime for bedtime for bedtime 30 days. 30 days. for 30 days. levothyroxi levothyroxi No levothyrox [place] ne 25 mcg ne 25 mcg ine 25 mcg Communi tablet TAKE tablet TAKE tablet ty 1 TABLET BY 1 TABLET BY TAKE 1 Hospita MOUTH EVERY MOUTH EVERY TABLET BY l DAY DAY MOUTH Clinics DIRECTED DIRECTED EVERY DAY DIRECTED neomycin-po neomycin-po No neomycin-p [place] lymyxin-hyd lymyxin-hyd olymyxin-h Communi rocort 3.5 rocort 3.5 ydrocort ty mg-10,000 mg-10,000 3.5 Hospi ta unit/mL-1 % unit/mL-1 % mg-10,000 l ear ear unit/mL-1 Clinics drops,susp drops,susp % ear INSTILL 4 INSTILL 4 drops,susp DROPS INTO DROPS INTO INSTILL 4 AFFECTED AFFECTED DROPS INTO EAR(S) BY EAR(S) BY AFFECTED OTIC ROUTE OTIC ROUTE EAR(S) BY 3 TIMES PER 3 TIMES PER OTIC ROUTE DAY DAY 3 TIMES PER DAY Zithromax Zithromax No Zithromax [place] Z-Ashutosh 250 Z-Ashutosh 250 Z-Ashutosh 250 Communi mg tablet mg tablet mg tablet ty TAKE 2 TAKE 2 TAKE 2 Hospita TABLETS TABLETS TABLETS l (500 MG) BY (500 MG) BY (500 MG) Clinics ORAL ROUTE ORAL ROUTE BY ORAL ONCE DAILY ONCE DAILY ROUTE ONCE FOR 1 DAY FOR 1 DAY DAILY FOR THEN 1 THEN 1 1 DAY THEN TABLET (250 TABLET (250 1 TABLET MG) BY ORAL MG) BY ORAL (250 MG) ROUTE ONCE ROUTE ONCE BY ORAL DAILY FOR 4 DAILY FOR 4 ROUTE ONCE DAYS DAYS DAILY FOR 4 DAYS Vital Signs Vital Name Observation Time Observation Value Comments Source BMI (Body Mass 2023-05-30 00:00:00 25 kg/m2 [facility] s BP Systolic 2023-05-30 00:00:00 119 mm[Hg] [facility] s Height 2023-05-30 00:00:00 71 [in_i] [facility] s BP Diastolic 2023-05-30 00:00:00 75 mm[Hg] [facility] s Body Weight 2023-05-30 00:00:00 2864 [oz_av] [facility] s Body Weight 2023-05-16 00:00:00 2816 [oz_av] [facility] s BP Diastolic 2023-05-16 00:00:00 75 mm[Hg] [facility] s Height 2023-05-16 00:00:00 71 [in_i] [facility] s BP Systolic 2023-05-16 00:00:00 116 mm[Hg] [facility] s BMI (Body Mass 2023-05-16 00:00:00 24.5 kg/m2 [facility]) [facility] s BP Diastolic 2023-04-18 00:00:00 88 mm[Hg] [facility] s Body Weight 2023-04-18 00:00:00 2809.6 [oz_av] [facility] s BP Systolic 2023-04-18 00:00:00 114 mm[Hg] [facility] s BMI (Body Mass 2023-04-18 00:00:00 24.5 kg/m2 [facility]) [facility] s Height 2023-04-18 00:00:00 71 [in_i] [facility] s Procedures Procedure Date / Time Performed Performing Clinician [facility] e Operation on Ovary [facility] Tonsillectomy [facility] Excision of Lipoma [facility] Total Hysterectomy [facility] Plan of Care Planned Activity Planned Date Details Comments Source Diagnostic Test Pending 2023-04-18 TSH + free T4, Count includes the [facility] 00:00:00 serum [code = TSH Hospital linics + free T4, serum] Diagnostic Test Pending 2023-04-18 vitamin D, [facility] 00:00:00 25-hydroxy, Hospital Clinic s total, serum [code = vitamin D, 25-hydroxy, total, serum] Diagnostic Test Pending 2023-04-18 CMP, serum or [facility] 00:00:00 plasma [code = Hospital Clin ics CMP, serum or plasma] Diagnostic Test Pending 2023-04-18 CBC w/ auto diff [facility] 00:00:00 [code = CBC w/ Hospital Clin ics auto diff] Diagnostic Test Pending 2023-04-18 lipid panel, [facility] 00:00:00 blood [code = Hospital Clini cs lipid panel, blood[facility] Start End Encounter Admission Attending Care Care Encounter Source Date/Time Date/Time Type Type Clinicians Facility Department ID 2023-05-30 2023-05-30 Vianey [facility] [place] [id number] [place] 00:00:00 00:00:00 [facility] [place] 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 2023-04-17 2023-04-17 Outpatient MORENITA_F [facility] [id number] [place] 00:00:00 00:00:00 [facility]0 [facility] 2023-01-26 2023-01-26 Outpatient [email or web address]_Ka PRIV PRIV [id number] [facility] 00:00:00 00:00:00 rachel_Steven [id number] Medic al Results This patient has no known results.
--- NOTE | 2023-06-09 19:01 | EDPHYS ---
Physician Documentation [facility] Name: Lila Farmer Age: 33 yrs Sex: Female : 1990 Arrival Date: 06/09/2023 Time: 18:48 Bed IW2 Private MD: ED Physician Jorge Herrera HPI: 06/09 18:59 This 33 yrs old Female presents to ER via Ambulatory with complaints of Ear Pain. kb 18:59 Patient is a 33-year-old female with a history of asthma who presents for right ear kb pain for 1 week. States she was seen by her PCP 1 week ago and prescribed antibiotic drops and steroids but pain has persisted.. Historical: - Allergies: 18:56 Adhesives; ld1 18:56 Clindamycin; ld1 18:56 Ibuprofen; ld1 18:56 Latex; ld1 18:56 PENICILLINS; ld1 18:56 Tramadol HCl; ld1 18:56 SUMATRIPTAN; ld1 - PMHx: 18:56 Asthma; ld1 - PSHx: 18:56 face reconstruction; hysterectomy; Tonsillectomy; ld1 - Immunization history:: Adult Immunizations up to date. - Social history:: Smoking status: Patient denies any tobacco usage or history of. Patient/guardian denies using alcohol. ROS: 18:57 Constitutional: Negative for fever, chills, and weight loss, kb 18:57 ENT: Positive for ear pain, 18:57 All other systems are negative, Exam: 18:57 Constitutional: This is a well developed, well nourished patient who is awake, alert, kb and in no acute distress. Head/Face: Normocephalic, atraumatic. Cardiovascular: Regular rate Respiratory: Respirations even and unlabored. No increased work of breathing. Talking in full sentences Skin: Warm, dry with normal turgor. Normal color. MS/ Extremity: Pulses equal, no cyanosis. Neurovascular intact. Full, normal range of motion. Neuro: Awake and alert, GCS 15, oriented to person, place, time, and situation. Moves all extremities. Normal gait. 18:57 ENT: TM's: bulging, on the right, erythema, that is marked, on the right, Vital Signs: 18:57 BP 139 / 97; Pulse 72; Resp 18; Temp 98.8(TE); Pulse Ox 99% on R/A; Weight 79.38 kg; ld1 Height 5 ft. 8 in. ; Pain 8/10; 18:57 Body Mass Index 26.61 (79.38 kg, 172.72 cm) ld1 18:57 Pain Scale: Adult ld1 MDM: 18:51 Patient medically screened. kb 18:58 Differential diagnosis: otitis media, otitis externa, ruptured TM, foreign body, acute kb otalgia. Data reviewed: vital signs, nurses notes. Counseling: I had a detailed discussion with the patient and/or guardian regarding the historical points, exam findings, and any diagnostic results supporting the discharge/admit diagnosis, the need for outpatient follow up, an ENT specialist, a family practitioner, to return to the emergency department if symptoms worsen or persist or if there are any questions or concerns that arise at home. Administered Medications: No medications were administered Disposition Summary: 06/09/23 19:00 Discharge Ordered Notes: Location: Home kb Condition: Stable kb Diagnosis - Otitis media, unspecified, right ear kb Followup: kb - With: Emergency Department - When: As needed - Reason: Worsening of condition Followup: kb - With: Private Physician - When: 2 - 3 days - Reason: Recheck today's complaints, Continuance of care, Re-evaluation by your physician Discharge Instructions: - Discharge Summary Sheet kb - Otitis Media, Pediatric, Rbim-or-Pcik kb Forms: - Medication Reconciliation Form kb - Thank You Letter kb - Antibiotic Education kb - Prescription Opioid Use kb - Patient Portal Instructions kb - Leadership Thank You Letter kb Prescriptions: - Zithromax 500 mg Oral Tablet - take 1 tablet ORAL route once daily for 5 days; 5 tablet; Refills: 0, Product kb Selection Permitted Signatures: Liliana Chaves, RESERVATION CLERK-C RESERVATION CLERK-Joya Rodas, RN RN ld1
--- NOTE | 2023-06-09 19:01 | ER ---
Nurse's Notes [facility] Name: Lila Farmer Age: 33 yrs Sex: Female : 1990 Arrival Date: 06/09/2023 Time: 18:48 Bed IW2 Private MD: Diagnosis: Otitis media, unspecified, right ear Presentation: 06/09 18:56 Chief complaint: Patient states: Ear pain X 1 week. Coronavirus screen: At this time, ld1 the client does not indicate any symptoms associated with coronavirus-19. Ebola Screen: No symptoms or risks identified at this time. Risk Assessment: Do you want to hurt yourself or someone else? Patient reports no desire to harm self or others. Onset of symptoms was June 09, 2023. 18:56 Method Of Arrival: Ambulatory ld1 18:56 Acuity: HEAVEN 4 ld1 18:57 Initial Sepsis Screen: Does the patient meet any 2 criteria? No. Patient's initial ld1 sepsis screen is negative. Does the patient have a suspected source of infection? No. Patient's initial sepsis screen is negative. Triage Assessment: 18:56 General: Appears in no apparent distress. uncomfortable, Behavior is calm, cooperative, ld1 appropriate for age. Pain: Complains of pain in right ear Pain does not radiate. Pain currently is 8 out of 10 on a pain scale. Quality of pain is described as throbbing. EENT: Reports pain in right ear. Neuro: Level of Consciousness is awake, alert, obeys commands, Oriented to person, place, time, situation. Cardiovascular: Capillary refill < 3 seconds Patient's skin is warm and dry. Respiratory: Airway is patent Respiratory effort is even, unlabored. GI: Abdomen is flat, non-distended. : No signs and/or symptoms were reported regarding the genitourinary system. Derm: No signs and/or symptoms reported regarding the dermatologic system. Musculoskeletal: No signs and/or symptoms reported regarding the musculoskeletal system. Historical: - Allergies: 18:56 Adhesives; ld1 18:56 Clindamycin; ld1 18:56 Ibuprofen; ld1 18:56 Latex; ld1 18:56 PENICILLINS; ld1 18:56 Tramadol HCl; ld1 18:56 SUMATRIPTAN; ld1 - PMHx: 18:56 Asthma; ld1 - PSHx: 18:56 face reconstruction; hysterectomy; Tonsillectomy; ld1 - Immunization history:: Adult Immunizations up to date. - Social history:: Smoking status: Patient denies any tobacco usage or history of. Patient/guardian denies using alcohol. Screenin:01 [facility] ED Fall Risk Assessment (Adult) History of falling in the last 3 months, ld1 including since admission No falls in past 3 months (0 pts). Abuse screen: Denies threats or abuse. Denies injuries from another. Nutritional screening: No deficits noted. Tuberculosis screening: No symptoms or risk factors identified. Assessment: 19:01 Reassessment: See triage assessment. ld1 Vital Signs: 18:57 BP 139 / 97; Pulse 72; Resp 18; Temp 98.8(TE); Pulse Ox 99% on R/A; Weight 79.38 kg; ld1 Height 5 ft. 8 in. ; Pain 8/10; 18:57 Body Mass Index 26.61 (79.38 kg, 172.72 cm) ld1 18:57 Pain Scale: Adult ld1 ED Course: 18:51 Patient arrived in ED. kj1 18:51 Liliana Chaves [facility]NP-C [facility] kb 18:51 Jorge Herrera MD is Attending Physician. kb 18:56 Triage completed. ld1 18:56 Arm band placed on right wrist. ld1 19:01 Patient has correct armband on for positive identification. Placed in gown. Bed in low ld1 position. Call light in reach. Side rails up X2. Pulse ox on. NIBP on. Door closed. Noise minimized. Warm blanket given. 19:01 No provider procedures requiring assistance completed. Patient did not have IV access ld1 during this emergency room visit. Administered Medications: No medications were administered Medication: 19:01 VIS not applicable for this client. ld1 Outcome: 19:00 Discharge ordered by . kb 19:01 Discharged to home ambulatory, ld1 19:01 Condition: stable 19:01 Discharge instructions given to patient, Instructed on discharge instructions, follow up and referral plans. medication usage, Demonstrated understanding of instructions, follow-up care, medications, Prescriptions given X 1, 19:04 Patient left the ED. ld1 Signatures: Liliana Chaves FNP-C FNP-Mesha Rodriguez kj1 Mayorga, Joya, RN RN ld1
[2023-06-09 19:18] VITALS: BP 139/97; TEMP 98.8; O2SAT 99
== END 2023-06-09 19:04 | disposition home or self-care (01) ==
LOC: ER 18:48
DX: H66.91 Otitis media, unspecified, right ear (principal)
CPT/HCPCS: 99283